=== PATIENT | male | born 1980 | race Caucasian/White ===

== ENCOUNTER 2016-06-27 23:51 | Emergency (ER) | payer OTHER, MEDICAID ==
[~2016-06-27] VITALS: Ht 175.3 cm; Wt 75.0 kg
[~2016-06-27 23:51] MED LIST: DIVA500T PO; NEUR300C PO; QUET1TAB9 PO; VENL75XR PO
[2016-06-28 00:05] VITALS: BP 120/72; PULSE 91; RESP 18; TEMP 97.8; O2SAT 99
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
[2016-06-28 00:39] LABS: AUTOMATED NEUTROPHIL # 9.8 TH/MM3 (1.8-7.7); BASOPHIL # 0.1 TH/MM3 (0-0.2); BASOPHIL % 0.8 % (0.0-2.0); EOSINOPHIL # 0.1 TH/MM3 (0-0.4); EOSINOPHIL % 0.5 % (0.0-4.0); HEMATOCRIT 44.4 % (39.0-51.0); HEMO FLAGS DIFF FINAL; LYMPH % 10.4 % (9.0-44.0); LYMPHOCYTE # 1.3 TH/MM3 (1.0-4.8); MEAN CELL VOLUME 92.6 FL (80.0-100.0); MEAN CORPUSCULAR HEMOGLOBIN 32.9 PG (27.0-34.0); MEAN CORPUSCULAR HGB CONC 35.6 % (32.0-36.0); MONO % 6.5 % (0.0-8.0); NEUT % 81.8 % (16.0-70.0); PLATELET COUNT 229 TH/MM3 (150-450); RED CELL DISTRIBUTION WIDTH 13.3 % (11.6-17.2)
[2016-06-28 00:46] LABS: AMPHETAMINE, URINE NEG (NEG); BARBITURATES, URINE NEG (NEG); COCAINE, URINE NEG (NEG)
[2016-06-28 00:55] LABS: ALT (GPT) 511 U/L (12-78); ANION GAP 8 MEQ/L (5-15); AST (GOT) 215 U/L (15-37); BICARBONATE 26.7 MEQ/L (21.0-32.0); BLOOD UREA NITROGEN 13 MG/DL (7-18); CHLORIDE 103 MEQ/L (98-107); GLOMERULAR FILTRATION RATE 106 ML/MIN (>89); POTASSIUM 3.4 MEQ/L (3.5-5.1); SODIUM (NA) 138 MEQ/L (136-145)
[2016-06-28 00:57] LABS: ALKALINE PHOSPHATASE 84 U/L (45-117); TOTAL BILIRUBIN ADULT 0.6 MG/DL (0.2-1.0)
[2016-06-28] MEDS ORDERED: POTASSIUM CHLORIDE 20 MEQ CONTROLLED RELEASE TAB PO ONE (01:30)
[2016-06-28 06:06] VITALS: BP 99/51; PULSE 85; RESP 18; O2SAT 96
[2016-06-28 09:01] VITALS: BP 92/52; PULSE 86; RESP 18; O2SAT 100
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
[2016-06-28] MEDS ORDERED: VENL75TA PO (11:08)
[2016-06-28] MEDS ORDERED: SERO100T PO (11:08)
[2016-06-28] MEDS ORDERED: VENLAFAXINE HCL 75 MG TAB PO SCH (12:00)
[2016-06-28 12:10] VITALS: BP 108/66; PULSE 75; RESP 18; TEMP 91.3; O2SAT 99
[2016-06-28] MEDS ORDERED: GABAPENTIN 300 MG CAP PO SCH (13:00)
== END 2016-06-28 12:33 | disposition home or self-care (01) ==
LOC: NEPA 23:51 → NEPJ 06-28 12:33
DX: F33.0 Major depressive disorder, recurrent, mild (principal); R45.851 Suicidal ideations; F41.8 Other specified anxiety disorders; F17.210 Nicotine dependence, cigarettes, uncomplicated
CPT/HCPCS: 80053; 80307; 80320; 85025; 99285

== ENCOUNTER 2016-07-02 18:17 | Inpatient (IN) | payer MEDICAID, OTHER ==
[~2016-07-02] VITALS: Ht 152.4 cm; Wt 77.1 kg
[~2016-07-02 18:17] MED LIST changes: -DIVA500T PO; -QUET1TAB9 PO; +SERO100T PO; +VENL75TA PO; -VENL75XR PO
[2016-07-02 21:24] VITALS: BP 112/64; PULSE 80; RESP 18; TEMP 98
[2016-07-02] MEDS: LORazepam 1 MG TAB PO PRN (22:12)
[2016-07-02] MEDS ORDERED: ALUMINUM/MAGNESIUM/SIMETH 30 ML CUP PO PRN (22:15)
[2016-07-02] MEDS ORDERED: LORazepam 2 MG/ML VIAL IM PRN (22:15)
[2016-07-02] MEDS ORDERED: ACETAMINOPHEN 325 MG TAB PO PRN (22:15)
[2016-07-02] MEDS ORDERED: MAGNESIUM HYDROXIDE SUSP 30 ML CUP PO PRN (22:15)
[2016-07-03 05:58] VITALS: BP 103/60; PULSE 77; RESP 18; TEMP 98.2; O2SAT 96
[2016-07-03 07:24] LABS: ANION GAP 9 MEQ/L (5-15); BLOOD UREA NITROGEN 11 MG/DL (7-18); CHLORIDE 104 MEQ/L (98-107); GLOMERULAR FILTRATION RATE 103 ML/MIN (>89); HDL CHOLESTEROL 43.4 MG/DL (40.0-60.0); LDL CHOLESTEROL 125 MG/DL (0-99); POTASSIUM 4.1 MEQ/L (3.5-5.1); SODIUM (NA) 139 MEQ/L (136-145)
[2016-07-03] MEDS: REMOVE OLD NICOTINE PATCH T-DERMAL SCH (09:00)
[2016-07-03] MEDS: LORazepam 1 MG TAB PO PRN ×2 (09:15→16:34)
[2016-07-03] MEDS: NICOTINE 21 MG/24 HR PATCH T-DERMAL SCH (09:15)
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
[2016-07-03] MEDS: VENLAFAXINE HCL XR 75 MG CAP PO SCH ×2 (12:00→21:31)
[2016-07-03] MEDS: GABAPENTIN 400 MG CAP PO SCH ×2 (12:50→16:34)
--- NOTE | 2016-07-03 13:12 | PD.CONS ---
HPI Service [facility] Consult Requested By Psychiatry Reason for Consult Hepatitis C, management of medical problems Primary Care Physician Edgar Weaver MD Diagnoses: History of Present Illness This is a 35-year-old male admitted to psych unit for anxiety, depression and bipolar disorder. We were consulted for management of chronic conditions. Per patient, he has history of hepatitis C from IV drug use when he was 22 years old. He used intravenous heroin. Never had any treatment for hepatitis C or hasn't seen a doctor. No note of symptoms of hepatic failure-like jaundice, lower extremity edema, right upper quadrant abdominal pain, ascites, abdominal tenderness or distention. Patient denies any other symptoms like fever, chills , nausea, vomiting, malaise, chest pain or shortness of breath. No significant weight loss. Review of Systems ROS Limitations: Other (All other pertinent systems were reviewed and are negative.) Past Family Social History Allergies: Coded Allergies: Opiate Agonists (Narcotics) (Verified Allergy, Mild, 06/28/16) PT IS IN RECOVERY Past Medical History Hepatitis C Past Surgical History No major surgery Reported Medications None Family History Father has hypertension and cardiac problems. Social History Patient has been smoking 1 pack a day for about 17 years, remote intravenous drug use when he was 22 years old, claims sobriety from alcohol for 4 years now Physical Exam Vital Signs Vital Signs Date Time Temp Pulse Resp B/P Pulse Ox O2 Delivery O2 Flow Rate FiO2 07/03/16 05:58 98.2 77 18 103/60 96 07/02/16 21:24 98.0 80 18 112/64 Physical Exam Not in distress, well-nourished, looks stated age PERRL, pink conjunctiva without injection, anicteric Nose without bleeding, airway patent, oropharynx clear Supple neck, no masses or thyromegaly, trachea midline Normal rate and regular rhythm, no murmurs gallops or rubs appreciated. Clear to auscultation and symmetric bilaterally, normal respiratory effort. Normal bowel sounds, soft, non-tender, nondistended, no guarding. Extremities without clubbing, cyanosis, or edema. No rash of generalized distribution. Skin is warm and dry. AAO x3, no cranial nerve deficits, moves all 4 extremities, no focal neurologic deficits Normal mood, appropriate affect Laboratory Laboratory Tests Test 07/03/16 06:08 Sodium Level 139 Potassium Level 4.1 Chloride Level 104 Carbon Dioxide Level 26.0 Anion Gap 9 Blood Urea Nitrogen 11 Creatinine 0.85 Estimat Glomerular Filtration 103 Rate Random Glucose 107 Calcium Level 8.1 Triglycerides Level 121 Cholesterol Level 193 LDL Cholesterol 125 HDL Cholesterol 43.4 Cholesterol/HDL Ratio 4.44 Result Diagram: 07/03/16 0608 Assessment and Plan Assessment and Plan This is a 35-year-old male with history of chronic hepatitis C Chronic hepatitis C- this is a chronic condition, usual treatment is as outpatient but will need improvement in patients psychiatric conditions. Check LFTs, if normal, no further treatment or diagnostics needed. Patient was advised to follow-up with his primary care physician or he needs a referral to a commercial manager because he is at high risk for hepatocellular cancer and cirrhosis. He would need an annual ultrasound of the liver and further testing for genotyping before getting treatment. Treatment for hepatitis C is usually as outpatient. Depression, anxiety, bipolar disorder-further management per primary team. Thank your very much for this consult, we will check LFTs, if these are normal, we will sign off. Konrad Valdez MD Jul 03, 2016 13:12
[2016-07-03 13:48] LABS: INDIRECT BILIRUBIN 0.4 MG/DL (0.0-0.8); TOTAL BILIRUBIN ADULT 0.5 MG/DL (0.2-1.0)
[2016-07-03] MEDS: clonazePAM 0.5 MG TAB PO PRN (15:00)
[2016-07-03 16:01] LABS: HEMOGLOBIN A1a 1.2 %; HEMOGLOBIN A1b 0.8 %; HEMOGLOBIN Ao 85.4 %; HEMOGLOBIN F 0.9 %; HEMOGLOBIN LA1C 2.2 %; HEMOGLOBIN P3 3.8 %
[2016-07-03] MEDS ORDERED: QUEtiapine FUMARATE 200 MG TAB PO SCH (21:00)
[2016-07-04 06:15] VITALS: BP 99/58; PULSE 68; RESP 16; TEMP 98.3
[2016-07-04] MEDS: REMOVE OLD NICOTINE PATCH T-DERMAL SCH (09:00)
[2016-07-04] MEDS: VENLAFAXINE HCL XR 75 MG CAP PO SCH ×2 (09:40→21:06)
[2016-07-04] MEDS: GABAPENTIN 400 MG CAP PO SCH ×3 (09:40→17:09)
[2016-07-04] MEDS: NICOTINE 21 MG/24 HR PATCH T-DERMAL SCH (09:40)
[2016-07-04] MEDS: LORazepam 1 MG TAB PO PRN ×2 (09:40→15:32)
[2016-07-04] MEDS: clonazePAM 0.5 MG TAB PO PRN ×3 (10:36→21:06)
--- NOTE | 2016-07-04 11:03 | HHI.PYPN ---
Subjective Remarks Patient was seen and discussed with the staff technologist. Patient reported that he stays somewhat agitated and on edge. He had difficulty time sleeping. He still feels somewhat sad and depressed and occasionally thoughts of wanting to harm himself crosses his mind but he feels safe in the hospital. Is compliant in taking medication. No behavior or management problem reported. No side effects were complained. Continue with the same treatment adjust the medication Review of Systems Except as stated in HPI: all other systems reviewed are Neg Psychiatric: COMPLAINS OF: Anxiety, Mood changes, Depression, Agitation, Suicidal Ideation (passive suicidal ideas crosses his mind but he feels safe in the hospital) Objective Alert: Yes [place]: Person, Place, Situation Mood: Agitated, Anxious, Depressed, Other (patient feels on edge) Affect: Restricted Memory Intact: Recent (mildly impaired) Hallucinations: Other (denies any active auditory or visual hallucinations) Delusions: No Delusion Type: Other (no obvious delusional material voiced) Suicidal: Ideation (passive thoughts of suicide crosses his mind but feels safe in the hospital) Homicidal: Ideation (denies) Insight/Judgement Fair to limited Remarks Attention and concentration improving. Gait normal. Language normal. Fund of knowledge average Vitals/IOs Vital Signs Date Time Temp Pulse Resp B/P Pulse Ox O2 Delivery O2 Flow Rate FiO2 07/04/16 06:15 98.3 68 16 99/58 07/03/16 05:58 96 Assessment & Plan Problem List: (1) Bipolar affective disorder, mixed ICD Code: F31.60 (2) Alcohol abuse with physiological dependence ICD Code: F10.20 Assessment & Plan Estimated LOS: days Justification for Cont. Inpt. Monitoring of the medication and risks for safety Request HC Surrog/Guard Advoc?: No Anthony Montanez MD Jul 04, 2016 11:03
[2016-07-04 18:00] VITALS: BP 119/63; PULSE 98; RESP 18; TEMP 97.2; O2SAT 98
[2016-07-04] MEDS ORDERED: QUEtiapine FUMARATE 100 MG TAB PO SCH (21:00)
[2016-07-05 05:57] VITALS: BP 102/65; PULSE 68; RESP 18; TEMP 98.1
[2016-07-05] MEDS: REMOVE OLD NICOTINE PATCH T-DERMAL SCH (09:00)
[2016-07-05] MEDS: NICOTINE 21 MG/24 HR PATCH T-DERMAL SCH (09:19)
[2016-07-05] MEDS: VENLAFAXINE HCL XR 75 MG CAP PO SCH ×2 (09:19→21:04)
[2016-07-05] MEDS: GABAPENTIN 400 MG CAP PO SCH ×3 (09:19→17:17)
[2016-07-05] MEDS: clonazePAM 0.5 MG TAB PO PRN ×2 (09:20→17:17)
--- NOTE | 2016-07-05 11:55 | HHI.PYPN ---
Subjective Remarks Patient was seen and discussed with the manager staffing. Patient was isolating himself and staying in his room thinking and worried about feeling anxious and depressed worried about future. Complain about not being able to sleep or rest at night. Denies any active suicidal ideation intentions or plan. No behavior or management problem reported. Advised to continue with the same treatment he is compliant in taking medication. No side effects were complained. Review of Systems Except as stated in HPI: all other systems reviewed are Neg Psychiatric: COMPLAINS OF: Anxiety, Mood changes, Depression Objective Alert: Yes [place]: Person, Place, Situation Mood: Agitated, Anxious, Depressed, Other (patient feels on edge and worried about the future) Affect: Restricted Memory Intact: Recent (mildly impaired) Hallucinations: Other (denies any active auditory or visual hallucinations) Delusions: No Delusion Type: Other (no obvious delusional material voiced) Suicidal: Ideation (passive thoughts of suicide crosses his mind but feels safe in the hospital) Homicidal: Ideation (denies) Insight/Judgement Fair Vitals/IOs Vital Signs Date Time Temp Pulse Resp B/P Pulse Ox O2 Delivery O2 Flow Rate FiO2 07/05/16 05:57 98.1 68 18 102/65 07/04/16 18:00 98 Intake and Output 07/04/16 07/04/16 07/05/16 08:00 16:00 00:00 Intake Total 360 ml Balance 360 ml Assessment & Plan Problem List: (1) Bipolar affective disorder, mixed ICD Code: F31.60 (2) Alcohol abuse with physiological dependence ICD Code: F10.20 Assessment & Plan Estimated LOS: days Justification for Cont. Inpt. Risk of decompensation and monitoring of the medication Request HC Surrog/Guard Advoc?: No Anthony Montanez MD Jul 05, 2016 11:55
[2016-07-05] MEDS: LORazepam 1 MG TAB PO PRN ×2 (12:43→20:04)
[2016-07-05 18:48] VITALS: BP 127/61; PULSE 94; RESP 18; O2SAT 98
[2016-07-05] MEDS: QUEtiapine FUMARATE 200 MG TAB PO SCH (21:04)
[2016-07-06 05:42] VITALS: BP 98/58; PULSE 64; RESP 18; TEMP 97.9
[2016-07-06] MEDS: clonazePAM 0.5 MG TAB PO PRN ×3 (08:19→23:19)
[2016-07-06] MEDS: VENLAFAXINE HCL XR 75 MG CAP PO SCH ×2 (08:19→20:43)
[2016-07-06] MEDS: REMOVE OLD NICOTINE PATCH T-DERMAL SCH (08:19)
[2016-07-06] MEDS: GABAPENTIN 400 MG CAP PO SCH ×3 (08:19→17:25)
[2016-07-06] MEDS: NICOTINE 21 MG/24 HR PATCH T-DERMAL SCH (08:19)
[2016-07-06] MEDS: LORazepam 1 MG TAB PO PRN ×2 (10:51→19:37)
--- NOTE | 2016-07-06 17:35 | HHI.PYPN ---
Subjective Remarks Pt seen and discussed with staff. He reports he is tolerating medications without side effects. He reports improvement in mood but anxiety persists. Pt has been pacing hallways. He reports SI persists but he denies HI. Review of Systems Psychiatric: COMPLAINS OF: Anxiety, Suicidal Ideation Objective Alert: Yes [place]: Person, Place, Date, Situation Mood: Anxious, Depressed Affect: Restricted Memory Intact: Immediate, Recent, Remote Hallucinations: Other (denies any active auditory or visual hallucinations) Delusions: No Delusion Type: Other (no obvious delusional material voiced) Suicidal: Ideation (intermittent thoughts of suicide crosses his mind but feels safe in the hospital) Homicidal: Ideation (denies) Insight/Judgement poor Vitals/IOs Vital Signs Date Time Temp Pulse Resp B/P Pulse Ox O2 Delivery O2 Flow Rate FiO2 07/06/16 05:42 97.9 64 18 98/58 07/05/16 18:48 98 Assessment & Plan Problem List: (1) Bipolar affective disorder, mixed ICD Code: F31.60 (2) Alcohol abuse with physiological dependence ICD Code: F10.20 Assessment & Plan Continue current tx plan. Pt improving. Estimated LOS: days Justification for Cont. Inpt. impairments in safety Request HC Surrog/Guard Advoc?: No Aleisha Ayon MD Jul 06, 2016 17:35
[2016-07-06] MEDS: QUEtiapine FUMARATE 200 MG TAB PO SCH (20:43)
[2016-07-06 22:00] VITALS: BP 155/76; PULSE 82; RESP 18; TEMP 97.9; O2SAT 97
[2016-07-07 05:15] VITALS: BP 99/63; PULSE 66; RESP 18; TEMP 98.3
[2016-07-07] MEDS: clonazePAM 0.5 MG TAB PO PRN ×2 (08:33→17:07)
[2016-07-07] MEDS: GABAPENTIN 400 MG CAP PO SCH ×3 (08:33→17:07)
[2016-07-07] MEDS: VENLAFAXINE HCL XR 75 MG CAP PO SCH ×2 (08:33→21:15)
[2016-07-07] MEDS: REMOVE OLD NICOTINE PATCH T-DERMAL SCH (08:33)
[2016-07-07] MEDS: NICOTINE 21 MG/24 HR PATCH T-DERMAL SCH (08:33)
[2016-07-07] MEDS: LORazepam 1 MG TAB PO PRN ×2 (11:29→19:35)
--- NOTE | 2016-07-07 18:38 | HHI.PYPN ---
Subjective Remarks Pt seen and discussed with staff. Pt reports decreased SI and denies HI. He has been out on milieu interacting with peers and participating in activities. No medication side effects. Objective Alert: Yes [place]: Person, Place, Date, Situation Mood: Depressed Affect: Restricted Memory Intact: Immediate, Recent, Remote Hallucinations: Other (denies any active auditory or visual hallucinations) Delusions: No Delusion Type: Other (no obvious delusional material voiced) Suicidal: Ideation (intermittent thoughts of suicide crosses his mind but feels safe in the hospital) Homicidal: Ideation (denies) Insight/Judgement limited Vitals/IOs Vital Signs Date Time Temp Pulse Resp B/P Pulse Ox O2 Delivery O2 Flow Rate FiO2 07/07/16 05:15 98.3 66 18 99/63 07/06/16 22:00 97 Assessment & Plan Problem List: (1) Bipolar affective disorder, mixed ICD Code: F31.60 (2) Alcohol abuse with physiological dependence ICD Code: F10.20 Assessment & Plan Continue current tx plan. Estimated LOS: days Justification for Cont. Inpt. impairments in safety Request HC Surrog/Guard Advoc?: Aleisha Nolasco MD Jul 07, 2016 18:38
[2016-07-07 21:02] VITALS: BP 124/62; PULSE 72; TEMP 98; O2SAT 98
[2016-07-07] MEDS: QUEtiapine FUMARATE 200 MG TAB PO SCH (21:15)
[2016-07-08 05:30] VITALS: BP 98/58; PULSE 71; RESP 18; TEMP 97.9
[2016-07-08] MEDS: GABAPENTIN 400 MG CAP PO SCH ×3 (08:40→17:05)
[2016-07-08] MEDS: REMOVE OLD NICOTINE PATCH T-DERMAL SCH (08:40)
[2016-07-08] MEDS: VENLAFAXINE HCL XR 75 MG CAP PO SCH ×2 (08:40→20:09)
[2016-07-08] MEDS: NICOTINE 21 MG/24 HR PATCH T-DERMAL SCH (08:40)
[2016-07-08] MEDS: clonazePAM 0.5 MG TAB PO PRN ×2 (09:19→17:05)
--- NOTE | 2016-07-08 10:44 | HHI.PYPN ---
Subjective Remarks Patient was seen and discussed with the medical staff services manager. Patient claimed that he continues to feel agitated anxious pacing scared and angry. Patient wanted to have the Klonopin he was advised that he is already taking the Seroquel I we will adjust the Seroquel to help his nerves. He also claimed that he gets easily angry we will try him on Depakote again to control temper. He was encouraged to participate in all the therapeutic activity on the floor. Continue with the same treatment social work case manager to assist for aftercare and discharge planning Review of Systems Except as stated in HPI: all other systems reviewed are Neg Psychiatric: COMPLAINS OF: Anxiety, Mood changes, Depression, Agitation Objective Alert: Yes [place]: Person, Place, Date, Situation Mood: Agitated, Angry, Anxious, Depressed Affect: Restricted Memory Intact: Immediate, Recent, Remote Hallucinations: Other (denies any active auditory or visual hallucinations) Delusions: No Delusion Type: Other (no obvious delusional material voiced) Suicidal: Ideation (intermittent thoughts of suicide crosses his mind but feels safe in the hospital) Homicidal: Ideation (denies) Insight/Judgement Fair to limited Vitals/IOs Vital Signs Date Time Temp Pulse Resp B/P Pulse Ox O2 Delivery O2 Flow Rate FiO2 07/08/16 05:30 97.9 71 18 98/58 07/07/16 21:02 98 Assessment & Plan Problem List: (1) Bipolar affective disorder, mixed ICD Code: F31.60 (2) Alcohol abuse with physiological dependence ICD Code: F10.20 Assessment & Plan Estimated LOS: days Justification for Cont. Inpt. Monitoring of the medication and risk of safety Request HC Surrog/Guard Advoc?: No Anthony Montanez MD Jul 08, 2016 10:44
[2016-07-08] MEDS: DIVALPROEX SODIUM DELAYED RELEASE 250 MG TAB PO SCH ×2 (10:45→20:08)
[2016-07-08] MEDS: LORazepam 1 MG TAB PO PRN ×2 (11:41→19:05)
[2016-07-08] MEDS: QUEtiapine FUMARATE 25 MG TAB PO SCH ×2 (12:27→17:05)
[2016-07-08 19:00] VITALS: BP 153/75; PULSE 88; RESP 18; TEMP 97.9; O2SAT 97
[2016-07-08] MEDS: QUEtiapine FUMARATE 200 MG TAB PO SCH (21:17)
[2016-07-09] MEDS: clonazePAM 0.5 MG TAB PO PRN ×3 (05:15→21:14)
[2016-07-09 05:52] VITALS: BP 100/60; PULSE 70; RESP 18; TEMP 97.8
[2016-07-09 06:24] VITALS: BP 100/60; PULSE 70; RESP 18; TEMP 97.8
[2016-07-09 08:30] VITALS: BP 103/59; PULSE 86; RESP 18; O2SAT 96
[2016-07-09] MEDS: DIVALPROEX SODIUM DELAYED RELEASE 250 MG TAB PO SCH ×2 (08:55→21:16)
[2016-07-09] MEDS: QUEtiapine FUMARATE 25 MG TAB PO SCH ×3 (08:55→17:37)
[2016-07-09] MEDS: NICOTINE 21 MG/24 HR PATCH T-DERMAL SCH (08:55)
[2016-07-09] MEDS: LORazepam 1 MG TAB PO PRN ×2 (08:55→16:37)
[2016-07-09] MEDS: REMOVE OLD NICOTINE PATCH T-DERMAL SCH (08:55)
[2016-07-09] MEDS: GABAPENTIN 400 MG CAP PO SCH ×3 (08:55→17:37)
[2016-07-09] MEDS: VENLAFAXINE HCL XR 75 MG CAP PO SCH ×2 (08:55→21:14)
--- NOTE | 2016-07-09 10:23 | HHI.PYPN ---
Subjective Remarks Patient was seen and discussed with the staff electrical engineer. No behavior or management problem reported. Patient claimed that he has been feeling somewhat depressed and worried about going out but he is willing to work as an outpatient and abstain from any substance use and/or abuse. Patient denied any suicidal ideation intentions or plan. Denies any active auditory or visual hallucinations. No behavior or management problem reported. No side effects were complained. We'll assess foster care social worker to assist in aftercare and discharge planning for tomorrow Review of Systems Except as stated in HPI: all other systems reviewed are Neg Psychiatric: COMPLAINS OF: Mood changes, Depression Objective Alert: Yes [place]: Person, Place, Date, Situation Mood: Agitated, Angry, Anxious, Depressed Affect: Restricted Memory Intact: Immediate, Recent, Remote Hallucinations: Other (denies any active auditory or visual hallucinations) Delusions: No Delusion Type: Other (no obvious delusional material voiced) Suicidal: Ideation (denied any suicidal ideation intentions or plan) Homicidal: Ideation (denies) Insight/Judgement Fair Vitals/IOs Vital Signs Date Time Temp Pulse Resp B/P Pulse Ox O2 Delivery O2 Flow Rate FiO2 07/09/16 06:24 97.8 70 18 100/60 07/08/16 19:00 97 Assessment & Plan Problem List: (1) Bipolar affective disorder, mixed ICD Code: F31.60 (2) Alcohol abuse with physiological dependence ICD Code: F10.20 Assessment & Plan Estimated LOS: days Justification for Cont. Inpt. Risk of decompensation and monitoring of the medication Request HC Surrog/Guard Advoc?: No Anthony Montanez MD Jul 09, 2016 10:23
[2016-07-09 18:35] VITALS: BP 126/71; PULSE 83; RESP 18; TEMP 97.6; O2SAT 97
[2016-07-09] MEDS: QUEtiapine FUMARATE 200 MG TAB PO SCH (21:14)
[2016-07-10] MEDS: clonazePAM 0.5 MG TAB PO PRN (05:37)
[2016-07-10 05:55] VITALS: BP 106/57; PULSE 70; RESP 16; TEMP 97.2; O2SAT 97
[2016-07-10] MEDS: QUEtiapine FUMARATE 25 MG TAB PO SCH ×2 (08:16→12:28)
[2016-07-10] MEDS: GABAPENTIN 400 MG CAP PO SCH ×2 (08:16→12:28)
[2016-07-10] MEDS: DIVALPROEX SODIUM DELAYED RELEASE 250 MG TAB PO SCH (08:16)
[2016-07-10] MEDS: LORazepam 1 MG TAB PO PRN (08:16)
[2016-07-10] MEDS: VENLAFAXINE HCL XR 75 MG CAP PO SCH (08:16)
[2016-07-10] MEDS: NICOTINE 21 MG/24 HR PATCH T-DERMAL SCH (08:17)
[2016-07-10] MEDS: REMOVE OLD NICOTINE PATCH T-DERMAL SCH (08:17)
--- NOTE | 2016-07-10 10:45 | HHI.DS ---
Psychiatry Discharge Summary Inpatient Psychiatric care?: Yes Advance Directive: No Reason Not Provided: Patient Not Interested Mental Health AdvanceDirective: No Health Care Proxy: No Admission Admission Date Jul 02, 2016 at 20:30 Admission Diagnosis: (1) Bipolar affective disorder, depressed ICD Code: F31.30 GAF Score: 45 Brief History This is a 35-year-old white to male who was admitted as a transfer from [facility] where he was taken as he was threatening to hurt himself and his girlfriend. He claimed that he has been getting into an argument with his girlfriend. He denies any alcohol or drug use and/or abuse. He has been complaining of not being able to sleep and mind racing and getting easily irritated table and angry. Patient also has some questionable compliance in taking the medication. He has been having some difficulty controlling his aggressive impulses. Patient is willing to sign voluntary after discussion and willing to cooperate with the treatment and probably wants to go to a longer- term treatment he also has a history of alcohol abuse and mood swings. At the. Present time patient denies any suicidal ideation intentions or plan denied any auditory or visual hallucinations. Tobacco Use In Past 30 Days: 5 or More Cigarettes/Day Alcohol Use: Never Hospital Course Patient was started on supportive treatment. His medication was adjusted. He participated in some of the therapeutic activity on the floor. He started to feel better and was willing to follow-up as an outpatient and abstain from any substance use and/or abuse. Patient denied any suicidal ideation intentions or plan denied any auditory or visual hallucinations at that point arrangements were made for him to be discharged Results Blood Pressure 106 / 57 Vital Signs Date Time Temp Pulse Resp B/P Pulse Ox O2 Delivery O2 Flow Rate FiO2 07/10/16 05:55 97.2 70 16 106/57 97 Please see the EMR Summary of Major Lab Results Nothing significant Summary of Procedures None Imaging None Pending results at discharge: No Medications # of Antipsychotic meds at D/C: 1 Appropriate >1 Antipsych meds?: 2 Approp Antipsych med options 1 - Minimum of three failed multiple trials of monotherapy. Discharge Discharge Date: Jul 10, 2016 Discharge Diagnosis: (1) Bipolar affective disorder, depressed ICD Code: F31.30 Mental Status Exam at Disch Patient was alert oriented 3 cooperative casually dressed. His speech was clear spontaneous without any evidence of loose associations his mood was described as feeling fine and was willing to abstain from any substance use and/ or abuse and follow-up as an outpatient. No behavior or management problem reported except that he was inappropriate with another female patient. Patient denied any suicidal ideation intentions or plan. Willing to take the medication Pt Condition on Discharge: Stable Discharge Disposition: Discharge Home Discharge Instructions Diet Instructions: As Tolerated, No Restrictions Activities you can perform: Regular-No Restrictions Scheduled Appointment: Mehul Laws Discharge Time <= 30 minutes Discharge/Advance Care Plan Health Problems: (1) Bipolar affective disorder, mixed (2) Alcohol abuse with physiological dependence Goals to promote your health * To prevent worsening of your condition and complications * To maintain your health at the optimal level Directions to meet your goals Take your medications as prescribed Follow your dietary instruction Follow activity as directed Keep your appointments as scheduled Take your immunizations and boosters as scheduled If your symptoms worsen call your PCP, if no PCP go to Urgent Care Center or Emergency Room For 06/01 questions related to your inpatient stay or results of tests pending at discharge, please contact Dr. Anthony Montanez at Smoking is Dangerous to Your Health. Avoid second hand smoking Problem Qualifiers (1) Bipolar affective disorder, depressed: Qualified Code: F31.32 - Bipolar affective disorder, currently depressed, moderate Anthony Montanez MD Jul 10, 2016 10:45
[2016-07-10] MEDS ORDERED: VENL75XR PO (10:47)
[2016-07-10] MEDS ORDERED: DIVA250T PO (10:47)
[2016-07-10] MEDS ORDERED: NEUR400C PO (10:47)
[2016-07-10] MEDS ORDERED: QUET1TAB9 PO (10:47)
[2016-07-10] MEDS ORDERED: QUET1TAB7 PO (10:47)
== END 2016-07-10 13:00 | disposition home or self-care (01) | DRG 885 ==
LOC: UNDOADMIN 18:50 → H260 18:50
PROVIDERS: ADMIT Psychiatry & Neurology Psychiatry; ATTEND Psychiatry & Neurology Psychiatry
DX: F31.89 Other bipolar disorder (principal); F10.10 Alcohol abuse, uncomplicated; B18.2 Chronic viral hepatitis C; F41.8 Other specified anxiety disorders; F17.210 Nicotine dependence, cigarettes, uncomplicated; Z91.19 Patient's noncompliance with other medical treatment and regimen
CPT/HCPCS: 80048; 80061; 80076; 83036

== ENCOUNTER 2016-07-31 03:02 | Emergency (ER) | payer MEDICAID, OTHER ==
[~2016-07-31 03:02] MED LIST changes: +DIVA250T PO; +NEUR400C PO; +QUET1TAB7 PO; +QUET1TAB9 PO; +VENL75XR PO
[2016-07-31 03:04] VITALS: BP 130/72; PULSE 85; RESP 16; TEMP 98.1; O2SAT 98
== END 2016-07-31 09:44 | disposition left against medical advice (07) ==
LOC: NETRI 03:02
DX: R10.9 Unspecified abdominal pain (principal)
CPT/HCPCS: 99281

== ENCOUNTER 2016-08-07 01:55 | Inpatient (IN) | payer MEDICAID, OTHER ==
[~2016-08-07] VITALS: Ht 175.3 cm; Wt 75.6 kg
[2016-08-07 02:35] VITALS: BP 107/59; PULSE 74; RESP 18; TEMP 97.8; O2SAT 97
[2016-08-07] MEDS ORDERED: ALUMINUM/MAGNESIUM/SIMETH 30 ML CUP PO PRN (04:00)
[2016-08-07] MEDS ORDERED: MAGNESIUM HYDROXIDE SUSP 30 ML CUP PO PRN (04:00)
[2016-08-07] MEDS ORDERED: ACETAMINOPHEN 325 MG TAB PO PRN (04:00)
[2016-08-07 05:02] VITALS: BP 90/55; PULSE 98; RESP 18; TEMP 98; O2SAT 98
[2016-08-07 08:24] LABS: ANION GAP 5 MEQ/L (5-15); BICARBONATE 30.9 MEQ/L (21.0-32.0); BLOOD UREA NITROGEN 16 MG/DL (7-18); CHLORIDE 105 MEQ/L (98-107); GLOMERULAR FILTRATION RATE 89 ML/MIN (>89); HDL CHOLESTEROL 40.9 MG/DL (40.0-60.0); LDL CHOLESTEROL 109 MG/DL (0-99); POTASSIUM 4.3 MEQ/L (3.5-5.1); SODIUM (NA) 141 MEQ/L (136-145)
[2016-08-07] MEDS ORDERED: NICOTINE 21 MG/24 HR PATCH T-DERMAL SCH (09:00)
[2016-08-07 09:28] LABS: HEMOGLOBIN A1a 1.1 %; HEMOGLOBIN A1b 0.8 %; HEMOGLOBIN Ao 86.2 %; HEMOGLOBIN F 0.8 %; HEMOGLOBIN P3 3.5 %
[2016-08-07] MEDS ORDERED: LORazepam 2 MG TAB PO STA (10:51)
--- NOTE | 2016-08-07 12:44 | HHI.HP ---
Provisional Diagnosis Admission Date Aug 07, 2016 at 02:30 Barto I. Substance-induced mood disorder, alcohol and opiate use disorder, history of bipolar disorder and anxiety Barto II. Unspecified personality disorder, rule out antisocial personality disorder Barto III. Denies Barto IV. Homelessness, previous psychiatric hospitalizations with not therapeutic benefit Barto V. 55 Certification of Person's Competence To Provide Express and Informed Consent I have personally examined Naresh Su , a person being served at [facility] on, Aug 07, 2016 12:25. Express and informed consent means consent voluntarily given in writing, by a competent person, after sufficient explanation and disclosure of the subject matter involved to enable the person to make a knowing and willful decision without any element of force, fraud, deceit, duress, or other form of constraint or coercion. This person is 18 years of age or older, is not now known to be incompetent to consent to treatment with a guardian advocate, and does not have a health care surrogate or proxy currently making medical treatment decisions. I have found this person to be one of the following: [X] Competent to provide express and informed consent, as defined above, for voluntary admission to this facility and is competent to provide express and informed consent for treatment. He/she has the consistent capacity to make well reasoned, willful, and knowing decisions concerning his or her medical or mental health treatment. The person fully and consistently understands the purpose of the admission for examination/placement and is fully capable of personally exercising all rights assured under [place] [] Incompetent to provide express and informed consent to voluntary admission, and this is incompetent to provide express and informed consent to treatment. The person must be transferred to involuntary status and a petition for a guardian advocate filed with the Circuit Court. [] Refusing to provide express and informed consent to voluntary admission but is competent to provide express and informed consent for treatment. The person must be discharged or transferred to involuntary status. Form shall be completed within 24 hours of a person's arrival at the receiving facility and filed in the clinical record of each person: 1. Admitted on a voluntary basis 2. Permitted to provide express and informed consent to his/her own treatment 3. Allowed to transfer from involuntary to voluntary status 4. Prior to permitting a person to consent to his or her own treatment after having been previously found incompetent to consent to treatment. History of Present Illness Capacity: Has Capacity HPI The patient is a 35-year-old man, domiciled with a friend, unemployed , single, psychiatric history of self-reported bipolar disorder, anxiety, opiates and alcohol use disorder, noncompliance with medication and psychiatric follow-up, multiple psychiatric hospitalizations, >10, 4 this year, last hospitalization was here at [facility] in the 2600 unit under the care of Dr. Montanez , multiple suicidal attempts, multiple ER visits with similar presentation, no significant medical history who was transferred from [facility] due to suicidal ideation, under Su act. Patient was seen today along with nurse in charge, he was calm and cooperative, he is states that he came to the hospital because he is tired to live in the street and been using drugs all the time. He says that he has been using heroine and alcohol basically everyday , he uses about 2-10 bags of heroine daily, also uses 8-12 beers per day. He says that he has been using heroine and alcohol for years now, he doesn't remember the last period of sobriety that he has. He says that after he was discharged from [facility] a month ago he never took the psychiatric medications and never went to appointments. Patient states that alcohol and heroine are better than psychotropics for his depression. At this moment he endorses depression "because I am actively withdrawing and you have not given me anything ". Patient states that since he is in the psychiatric unit he doesn't feel that his suicidal, he says that he needs to be given medication for detox. He denies suicidal or homicidal ideation at this moment, he denies visual and auditory hallucinations. Patient is fully oriented 3. Review of Systems Constitutional: DENIES: Diaphoretic episodes, Fatigue, Fever, Weight gain, Weight loss, Chills, Dizziness, Change in appetite, Night Sweats Endocrine: DENIES: Heat/cold intolerance, Polydipsia, Polyuria, Polyphagia Eyes: DENIES: Blurred vision, Diplopia, Eye inflammation, Eye pain, Vision loss , Photosensitivity, Double Vision Ears, nose, mouth, throat: DENIES: Tinnitus, Hearing loss, Vertigo, Nasal discharge, Oral lesions, Throat pain, Hoarseness, Ear Pain, Running Nose, Epistaxis, Sinus Pain, Toothache, Odynophagia Respiratory: DENIES: Apneas, Cough, Snoring, Wheezing, Hemoptysis, Sputum production, Shortness of breath Cardiovascular: DENIES: Chest pain, Palpitations, Syncope, Dyspnea on Exertion , PND, Lower Extremity Edema, Orthopnea, Claudication Gastrointestinal: DENIES: Abdominal pain, Black stools, Bloody stools, Constipation, Diarrhea, Nausea, Vomiting, Difficulty Swallowing, Anorexia Musculoskeletal: DENIES: Joint pain, Muscle aches, Stiffness, Joint Swelling, Back pain, Neck pain Integumentary: DENIES: Abnormal pigmentation, Nail changes, Pruritus, Rash Hematologic/lymphatic: DENIES: Bruising, Lymphadenopathy Immunologic/allergic: DENIES: Eczema, Urticaria Neurologic: COMPLAINS OF: Tremor Psychiatric: DENIES: Anxiety, Confusion, Mood changes, Depression, Hallucinations, Agitation, Suicidal Ideation, Homicidal Ideation, Delusions Past Psych History Violence risk - others (6 mos) Chronic risk Violence risk - self (6 mos) Chronic risk Substance Abuse History Drugs/Alcohol past 12 months Patient reports daily use of alcohol and heroine Past Family Social History Coded Allergies: Opiate Agonists (Narcotics) (Verified Allergy, Mild, 07/31/16) PT IS IN RECOVERY Active Scripts Venlafaxine ER 24 HR (Effexor XR 24 HR)75 Mg [id number] Mg PO BID 10 Days Ref 0 Prov:Anthony Montanez MD 07/10/16 Quetiapine 25 Mg Tab25 Mg PO TID 7 Days Ref 0 Prov:Anthony Montanez MD 07/10/16 Quetiapine 200 Mg Tue546 Mg PO HS 10 Days Ref 0 Prov:Anthony Montanez MD 07/10/16 Gabapentin (Neurontin)400 Mg [id number] Mg PO TID 7 Days Ref 1 Prov:Anthony Montanez MD 07/10/[address] 250 Mg [id number] Mg PO Q12HR 10 Days Ref 0 Prov:Anthony Montanez MD 07/10/16 Gabapentin (Neurontin)300 Mg Umh556 Mg PO TID 10 Days Ref 1 Prov:Anthony Montanez MD 05/03/16 Reported Medications Quetiapine (Seroquel)100 Mg [id number] Mg PO HS #30 TAB Ref 0 06/28/16 Venlafaxine (Effexor)75 Mg Tab75 Mg PO BID #30 TAB Ref 0 06/28/16 Family History He denies Social History Patient was born and raised in [place], he has been living in [place] for the last 4 years, he lives with a friend in [place], he is unemployed, single , his highest level of education is high school Physical Exam Vital Signs Vital Signs Date Time Temp Pulse Resp B/P Pulse Ox O2 Delivery O2 Flow Rate FiO2 08/07/16 05:02 98.0 98 18 90/55 98 Mental Status Examination Appearance man, age appearing, good hygiene, [facility], he is calm and cooperative Speech: Unremarkable Orientation: x3 Memory: Unremarkable Thought Process: Logical Thought Content: Unremarkable Hallucination Type: None Attention and Concentration: Good Suicidal Ideation: No Previous Suicide Attempts: No Homicidal Ideation: No Previous Homicide Attempts: No Insight: Poor Affect: Good Mood: Appropriate Motor Activity: Normal gait Assessment & Plan Problem List: (1) Substance induced mood disorder Assessment & Plan: e patient is a 35-year-old man, domiciled with a friend, unemployed, single, psychiatric history of self-reported bipolar disorder, anxiety, opiates and alcohol use disorder, noncompliance with medication and psychiatric follow-up, multiple psychiatric hospitalizations, >10 , 4 this year, last hospitalization was here at [facility] in the 2600 unit under the care of Dr. Montanez, multiple suicidal attempts, multiple ER visits with similar presentation, no significant medical history who was transferred from [facility] due to suicidal ideation, under Su act. On psychiatric evaluation today patient is endorsing withdrawal of heroine and alcohol, he has been demanding benzodiazepines and methadone for his withdrawal. He denies suicidal or homicidal ideation, he denies visual and auditory hallucinations. Endorses depression related with symptomatology of withdrawal. The patient does not meet criteria to continue his psychiatric admission at this moment. I don't think that a psychiatric hospitalization is beneficial for this patient at this time, he really will benefit of a detox program in a long-term rehabilitation program. His recent suicidal statement was most probably secondary to acute alcohol and heroine intoxication, poor judgment, character structure, and most probably as a way to negotiate a place to stay overnight, rather than to a primary psychiatric condition. aged or disabled care worker intervention to provide patient with referral to detox/ rehabilitation in a [facility] act. Patient is psychiatrically stable to be discharged back to the community No psychotropic medication will be prescribed No restriction in diet and weightbearing Patient will be discharged back to his friend's house Extensive support, motivation psycho education provided Patient was oriented about importance of calling 911 in case of suicidal ideation, depression, symptoms of psychosis Patient verbalized agreement and understanding with the plan Will order Ativan 2 mg by mouth stat for anxiety and tremors ICD Code: F19.94 Assessment & Plan Estimated LOS: Tommy Cruz MD Aug 07, 2016 12:44
[2016-08-07] MEDS ORDERED: REMOVE OLD NICOTINE PATCH T-DERMAL SCH (21:00)
== END 2016-08-07 11:25 | disposition home or self-care (01) | DRG 897 ==
LOC: H260 02:30
PROVIDERS: ADMIT Psychiatry & Neurology Psychiatry; ATTEND Psychiatry & Neurology Psychiatry
DX: F19.94 Other psychoactive substance use, unspecified with psychoactive substance-induced mood disorder (principal); F31.9 Bipolar disorder, unspecified; Z91.14 Patient's other noncompliance with medication regimen; F41.9 Anxiety disorder, unspecified; F60.9 Personality disorder, unspecified; Z59.0 Homelessness
CPT/HCPCS: 80048; 80061; 83036

== ENCOUNTER 2016-09-06 00:59 | Inpatient (IN) | payer MEDICAID, OTHER ==
[~2016-09-06] VITALS: Ht 152.4 cm; Wt 75.5 kg
[2016-09-06 02:10] VITALS: BP 99/58; PULSE 80; RESP 16; TEMP 98.2; O2SAT 96
[2016-09-06] MEDS ORDERED: diphenhydrAMINE HCL 50 MG CAP PO PRN (03:00)
[2016-09-06] MEDS ORDERED: MAGNESIUM HYDROXIDE SUSP 30 ML CUP PO PRN ×2 (03:00→11:45)
[2016-09-06] MEDS ORDERED: ALUMINUM/MAGNESIUM/SIMETH 30 ML CUP PO PRN ×2 (03:00→11:45)
[2016-09-06] MEDS ORDERED: diphenhydrAMINE HCL 50 MG/ML VIAL IM PRN (03:00)
[2016-09-06] MEDS ORDERED: diphenhydrAMINE HCL 50 MG/ML VIAL - HS PRN IM (03:00)
[2016-09-06] MEDS ORDERED: traZODone HCL 50 MG TAB PO PRN (03:00)
[2016-09-06] MEDS ORDERED: diphenhydrAMINE HCL 50 MG CAP - HS PRN PO (03:00)
[2016-09-06 06:04] VITALS: BP 93/53; PULSE 85; RESP 18; TEMP 98; O2SAT 98
[2016-09-06 09:40] LABS: ANION GAP 6 MEQ/L (5-15); BICARBONATE 29.7 MEQ/L (21.0-32.0); BLOOD UREA NITROGEN 14 MG/DL (7-18); CHLORIDE 105 MEQ/L (98-107); GLOMERULAR FILTRATION RATE 119 ML/MIN (>89); HDL CHOLESTEROL 48.4 MG/DL (40.0-60.0); LDL CHOLESTEROL 111 MG/DL (0-99); POTASSIUM 3.8 MEQ/L (3.5-5.1); SODIUM (NA) 141 MEQ/L (136-145)
[2016-09-06] MEDS ORDERED: ACETAMINOPHEN 325 MG TAB PO PRN (11:45)
--- NOTE | 2016-09-06 12:07 | HHI.HP ---
Provisional Diagnosis Admission Date Sep 06, 2016 at 02:21 [place]elford I. Adjustment disorder with mixed disturbance of emotion and conduct f 43.25, polysubstance abuse including opioid type drugs f 11.20 Certification of Person's Competence To Provide Express and Informed Consent I have personally examined Naresh Su , a person being served at [facility] on, Sep 06, 2016 11:52. Express and informed consent means consent voluntarily given in writing, by a competent person, after sufficient explanation and disclosure of the subject matter involved to enable the person to make a knowing and willful decision without any element of force, fraud, deceit, duress, or other form of constraint or coercion. This person is 18 years of age or older, is not now known to be incompetent to consent to treatment with a guardian advocate, and does not have a health care surrogate or proxy currently making medical treatment decisions. I have found this person to be one of the following: [x] Competent to provide express and informed consent, as defined above, for voluntary admission to this facility and is competent to provide express and informed consent for treatment. He/she has the consistent capacity to make well reasoned, willful, and knowing decisions concerning his or her medical or mental health treatment. The person fully and consistently understands the purpose of the admission for examination/placement and is fully capable of personally exercising all rights assured under [place] [] Incompetent to provide express and informed consent to voluntary admission, and this is incompetent to provide express and informed consent to treatment. The person must be transferred to involuntary status and a petition for a guardian advocate filed with the Circuit Court. [] Refusing to provide express and informed consent to voluntary admission but is competent to provide express and informed consent for treatment. The person must be discharged or transferred to involuntary status. Form shall be completed within 24 hours of a person's arrival at the receiving facility and filed in the clinical record of each person: 1. Admitted on a voluntary basis 2. Permitted to provide express and informed consent to his/her own treatment 3. Allowed to transfer from involuntary to voluntary status 4. Prior to permitting a person to consent to his or her own treatment after having been previously found incompetent to consent to treatment. History of Present Illness Capacity: Has Capacity HPI Patient is a 35-year-old white male well known to us from multiple prior contacts comes here under Su act from [facility] after showing up there leaving his sober house, [facility], giving a history of suicidal ideation with plan to cut his wrists. Patient seen screen and that ED urine toxicology negative blood alcohol level negative. Of interest patient was seen here 08/07/16 with a consultation by Dr. Diaz visit [phone] at that time patient was discharged with no Rx is by us with recommendation to [facility]. As mentioned this is about the patient's fifth visit here this year. At the present time patient sitting quietly in his room nurse Raquel present throughout session. Patient stating that he is becoming more depressed with vague suicidal ideation that he needs his medication adjusted. Patient states that he sees Dr. Castaneda through [facility] act as being prescribed Seroquel Effexor and gabapentin however documentation by Dr. Diaz states the patient is been noncompliant with medication for at least a month or 2 prior to July of this year. Has been noncompliant with follow-up appointments also. Today patient is somewhat vague about compliance with medications stating he has not used any drugs since his visit here in July. He denies any voices or visions at this time, appears to be somewhat subtly substance seeking. Patient states she has no support group in town that he has 4-year-old and 11-year-old children in [facility] where his family of origin is. At the present time I feel patient would benefit from a brief period of observation and assessment. I also feel he has capacity thus I will lift the Su act allow her sign voluntary. We will attempt refrain from any opiates benzodiazepines or substances of abuse. We'll offer him his Seroquel 100 mg at at bedtime and our when necessary Atarax. We need to verify that he does have the ability to return to [facility] perhaps first part of next week Review of Systems Constitutional: DENIES: Diaphoretic episodes, Fatigue, Fever, Weight gain, Weight loss, Chills, Dizziness, Change in appetite, Night Sweats Endocrine: DENIES: Heat/cold intolerance, Polydipsia, Polyuria, Polyphagia Eyes: DENIES: Blurred vision, Diplopia, Eye inflammation, Eye pain, Vision loss , Photosensitivity, Double Vision Ears, nose, mouth, throat: DENIES: Tinnitus, Hearing loss, Vertigo, Nasal discharge, Oral lesions, Throat pain, Hoarseness, Ear Pain, Running Nose, Epistaxis, Sinus Pain, Toothache, Odynophagia Respiratory: DENIES: Apneas, Cough, Snoring, Wheezing, Hemoptysis, Sputum production, Shortness of breath Cardiovascular: DENIES: Chest pain, Palpitations, Syncope, Dyspnea on Exertion , PND, Lower Extremity Edema, Orthopnea, Claudication Gastrointestinal: DENIES: Abdominal pain, Black stools, Bloody stools, Constipation, Diarrhea, Nausea, Vomiting, Difficulty Swallowing, Anorexia Genitourinary: DENIES: Sexual dysfunction, Urinary frequency, Urinary incontinence, Urgency, Hematuria, Dysuria, Nocturia, Penile Discharge, Testicular Pain, Testicular Swelling Musculoskeletal: DENIES: Joint pain, Muscle aches, Stiffness, Joint Swelling, Back pain, Neck pain Integumentary: DENIES: Abnormal pigmentation, Nail changes, Pruritus, Rash Hematologic/lymphatic: DENIES: Bruising, Lymphadenopathy Immunologic/allergic: DENIES: Eczema, Urticaria Neurologic: DENIES: Abnormal gait, Headache, Localized weakness, Paresthesias, Seizures, Speech Problems, Tremor, Poor Balance Psychiatric: COMPLAINS OF: Anxiety (mild), Depression (mild), Suicidal Ideation (vague perhaps somewhat manipulative) Past Psych History Psychological trauma history Denies at this time Violence risk - others (6 mos) Low Violence risk - self (6 mos) Making vague suicidal ideation Substance Abuse History Drugs/Alcohol past 12 months Patient history alcohol and opiate abuse including IV heroin Past Family Social History Coded Allergies: Opiate Agonists (Narcotics) (Verified Allergy, Mild, 07/31/16) PT IS IN RECOVERY Past Medical History Patient history of hepatitis C. please see hospitalist assessment Reported Medications Quetiapine (Seroquel)100 Mg Ask217 Mg PO HS #30 TAB Ref 0 06/28/16 Discontinued Reported Medications Venlafaxine (Effexor)75 Mg Tab75 Mg PO BID #30 TAB Ref 0 06/28/16 Discontinued Scripts Venlafaxine ER 24 HR (Effexor XR 24 HR)75 Mg [id number] Mg PO BID 10 Days Ref 0 Prov:Anthony Montanez MD 07/10/16 Quetiapine 25 Mg Tab25 Mg PO TID 7 Days Ref 0 Prov:Anthony Montanez MD 07/10/16 Quetiapine 200 Mg Wiy226 Mg PO HS 10 Days Ref 0 Prov:Anthony Montanez MD 07/10/16 Gabapentin (Neurontin)400 Mg Plr848 Mg PO TID 7 Days Ref 1 Prov:Anthony Montanez MD 07/10/[address] 250 Mg [id number] Mg PO Q12HR 10 Days Ref 0 Prov:Anthony Montanez MD 07/10/16 Gabapentin (Neurontin)300 Mg [id number] Mg PO TID 10 Days Ref 1 Prov:Anthony Montanez MD 05/03/16 Current Medications Medications (Trade) Dose Ordered Sig/Adalgisa Route Start Time Stop Time Status Last Admin (Atarax) 50 mg Q6H PRN PO 09/06/16 03:00 (Benadryl) 50 mg HS PRN PO 09/06/16 03:00 (Milk Of Magnesia Liq) 30 ml DAILY PRN PO 09/06/16 03:00 (Mag-Al Plus Susp Liq) 30 ml Q6H PRN PO 09/06/16 03:00 (SEROquel) 100 mg HS PO 09/06/16 21:00 UNV Family History Patient denies significant family history states his family of origin there is a mass well Social History Patient lives in safe house has no support group in town Patient's Strengths (min. 2) Patient verbal irritable access healthcare Physical Exam Patient seen screened at [facility] exam reviewed and agreed with vital signs blood pressure 93/53 pulse 85 respirations 18 Vital Signs Vital Signs Date Time Temp Pulse Resp B/P Pulse Ox O2 Delivery O2 Flow Rate FiO2 09/06/16 06:04 98.0 85 18 93/53 98 Mental Status Examination Speech: Unremarkable, Circumstantial Orientation: x3 Memory: Unremarkable Thought Process: Logical, Circumstantial (mildly) Thought Content: Unremarkable Hallucination Type: None Attention and Concentration: Other (fair) Suicidal Ideation: Yes (patient making vague suicidal ideation though there may be a degree of manipulation and perhaps malingering with this) Previous Suicide Attempts: Yes Homicidal Ideation: No Previous Homicide Attempts: No Insight: Poor Judgement: Poor Affect: Other (decreased range and intensity) Mood: Euthymic (to somewhat restricted and dysphoric) Motor Activity: Normal gait Assessment & Plan Problem List: (1) Adjustment disorder with mixed disturbance of emotions and conduct ICD Code: F43.25 (2) Polysubstance dependence including opioid type drug, episodic abuse ICD Code: F11.20 Assessment & Plan Estimated LOS: days patient doesn't meet criteria for brief inpatient psychiatric hospitalization for further assessment and monitoring. I feel he has capacity, will lift Su act. We'll discontinue the trazodone, start patient on cervical 100 mg at at bedtime and continue the when necessary Atarax. We will attempt refrain from any opiates and benzodiazepines of substances of abuse Discharge Planning Hopefully of fairly short stay return patient to [facility] Request HC Surrog/Guard Advoc?: No Ky Ramsey MD Sep 06, 2016 12:07
--- NOTE | 2016-09-06 13:01 | PD.CONS ---
HPI Service [facility] Consult Requested By Psychiatric services Reason for Consult elevated liver enzymes Primary Care Physician No Primary Care Physician Diagnoses: History of Present Illness This is a 35-year-old male patient with past medical history which includes hepatitis C, bipolar and anxiety/depression. Patient was transferred from the hospital to inpatient psychiatric center for suicidal ideations. We have been consulted for assistance with management regarding elevated liver enzymes. Patient does have a history of hepatitis C. Patient reports he was told he had hepatitis C approximately 10 years ago at that time was an IV drug user has since stopped using IV drugs but has not had follow-up or treatment regarding his hepatitis C. Review of prior medical records patient in June 2016 reports he quit drinking 4 years ago. Today patient reports he quit drinking, "a couple months ago." At this time patient appears to be in no acute distress. Patient reports feeling well aside from his thoughts of suicide. Patient denies shortness of breath chest pain nausea vomiting diarrhea constipation and abdominal pain discomfort yellowing of skin or eyes fevers or chills. Patient also reports his appetite is good and his food intake has been about the same. Patient reports he has lost 15-20 pounds over the past 2-3 months. Review of prior records patient was admitted to psychiatric unit June 2016 weight 77.1 kg today weight is recorded at 76.2 kg. Review of Systems Except as stated in HPI: all other systems reviewed are Neg Past Family Social History Allergies: Coded Allergies: Opiate Agonists (Narcotics) (Verified Allergy, Mild, 07/31/16) PT IS IN RECOVERY Past Medical History hepatitis C, bipolar and anxiety/depression Past Surgical History Denies prior surgeries Reported Medications Seroquel (Quetiapine Fumarate) 100 Mg Tab 100 Mg PO HS Active Ordered Medications Current Medications Medications (Trade) Dose Ordered Sig/Adalgisa Route Start Time Stop Time Status Last Admin (Atarax) 50 mg Q6H PRN PO 09/06/16 03:00 (Benadryl) 50 mg HS PRN PO 09/06/16 03:00 (SEROquel) 100 mg HS PO 09/06/16 21:00 (Tylenol) 650 mg Q4H PRN PO 09/06/16 11:45 (Milk Of Magnesia Liq) 30 ml DAILY PRN PO 09/06/16 11:45 (Mag-Al Plus Susp Liq) 30 ml Q6H PRN PO 09/06/16 11:45 (Habitrol 21 Mg Patch.24 Hr) 1 patch DAILY T-DERMAL 09/06/16 12:00 Miscellaneous Information 1 HS TD 09/06/16 21:00 Family History Father had hypertension and, "heart problems" Social History Patient next one pack cigarettes per day for the past 17 years Reports IV drug use at 22 years old reports that since since that time has stopped using IV drugs Reports he quit EtOH use, "a couple months ago." Physical Exam Vital Signs Vital Signs Date Time Temp Pulse Resp B/P Pulse Ox O2 Delivery O2 Flow Rate FiO2 09/06/16 06:04 98.0 85 18 93/53 98 09/06/16 02:10 98.2 80 16 99/58 96 Physical Exam GENERAL: This is a well-nourished, well-developed patient, in no apparent distress. SKIN: No rashes, ecchymoses or lesions. Cool and dry. HEAD: Atraumatic. Normocephalic. No temporal or scalp tenderness. EYES: Extraocular motions intact. No scleral icterus. No injection or drainage. CARDIOVASCULAR: Regular rate and rhythm without murmurs, gallops, or rubs. RESPIRATORY: Clear to auscultation. Breath sounds equal bilaterally. No wheezes , rales, or rhonchi. GASTROINTESTINAL: Abdomen soft, non-tender, nondistended. No guarding. MUSCULOSKELETAL: Extremities without clubbing, cyanosis, or edema. No joint tenderness, effusion, or edema noted. No calf tenderness. Negative Homans sign bilaterally. NEUROLOGICAL: Awake and alert. No focal deficits appreciated. Motor and sensory grossly within normal limits. Five out of 5 muscle strength in all muscle groups. Normal speech. Laboratory Laboratory Tests Test 09/06/16 07:40 Sodium Level 141 Potassium Level 3.8 Chloride Level 105 Carbon Dioxide Level 29.7 Anion Gap 6 Blood Urea Nitrogen 14 Creatinine 0.75 Estimat Glomerular Filtration 119 Rate Random Glucose 88 Calcium Level 8.4 Triglycerides Level 87 Cholesterol Level 177 LDL Cholesterol 111 HDL Cholesterol 48.4 Cholesterol/HDL Ratio 3.65 Result Diagram: 09/06/16 0740 Assessment and Plan Assessment and Plan This is a 35-year-old male patient with past medical history which includes hepatitis C, bipolar and anxiety/depression. Patient was transferred from the hospital to inpatient psychiatric center for suicidal ideations. We have been consulted for assistance with management regarding elevated liver enzymes. Patient does have a history of hepatitis C. Patient reports he was told he had hepatitis C approximately 10 years ago at that time was an IV drug user has since stopped using IV drugs but has not had follow-up or treatment regarding his hepatitis C. Review of prior medical records patient in June 2016 reports he quit drinking 4 years ago. Today patient reports he quit drinking, "a couple months ago." Bipolar, suicidal ideations management per psychiatric team Elevated liver enzymes in patient with history of hepatitis C- question EtOH contributing to elevated liver enzymes Reviewed records [facility] ALT 287, AST 533 Review of prior hospital records ALT 90 AST 268 Repeat CMP in a.m. Ultrasound liver ordered and pending Recommended to patient that he needs outpatient GI/hepatology follow-up for treatment of Hepatitis C- consult placed to case management to assist with arrangements Tobacco abuse patient counseled encouraged to abstain Nicotine patch ordered DVT prophylaxis patient is ambulatory low risk Thank you for the consultation and for allowing us to participate in the care of this patient Discussed with patient, nursing and Dr. Ramsey Written by Anu Miller, acting as scribe for Dr. Hull on 09/06/16 at 13:09. All or portions of this note were transcribed by scribe [Anu Miller, PAC]. I, Dr. Charles Hull personally performed the history, physical exam, and medical decision making; and confirmed the accuracy of the information in the transcribed note. Authenticated by Dr. Charles Hull on 09/06/16 at 15:53. Anu Miller Sep 06, 2016 13:01 Charles Hull MD Sep 06, 2016 15:54
[2016-09-06] MEDS: NICOTINE 21 MG/24 HR PATCH T-DERMAL SCH (13:06)
[2016-09-06] MEDS: hydrOXYzine HCL 50 MG TAB PO PRN ×2 (13:06→20:44)
[2016-09-06 13:52] LABS: HEMOGLOBIN A1a 1.2 %; HEMOGLOBIN A1b 0.8 %; HEMOGLOBIN Ao 85.9 %; HEMOGLOBIN F 0.8 %; HEMOGLOBIN P3 3.5 %
[2016-09-06] MEDS: QUEtiapine FUMARATE 100 MG TAB PO SCH (20:43)
[2016-09-06] MEDS: REMOVE OLD NICODERM (NICOTINE) PATCH TD SCH (20:45)
[2016-09-07 05:49] VITALS: BP 104/55; PULSE 77; RESP 14; TEMP 97.5; O2SAT 98
[2016-09-07 07:45] LABS: ALT (GPT) 670 U/L (12-78); ANION GAP 7 MEQ/L (5-15); AST (GOT) 331 U/L (15-37); BICARBONATE 26.6 MEQ/L (21.0-32.0); BLOOD UREA NITROGEN 17 MG/DL (7-18); CHLORIDE 109 MEQ/L (98-107); GLOMERULAR FILTRATION RATE 114 ML/MIN (>89); POTASSIUM 4.1 MEQ/L (3.5-5.1); SODIUM (NA) 143 MEQ/L (136-145)
[2016-09-07 07:46] LABS: ALKALINE PHOSPHATASE 73 U/L (45-117); TOTAL BILIRUBIN ADULT 0.7 MG/DL (0.2-1.0)
[2016-09-07] MEDS: NICOTINE 21 MG/24 HR PATCH T-DERMAL SCH (09:00)
--- NOTE | 2016-09-07 11:07 | RADRPT ---
EXAM DATE/TIME: 09/07/2016 09:48 [facility] COMPARISON: No previous studies available for comparison. INDICATIONS : Abnormal labs. MEDICAL HISTORY : Hepatitis C. Elevated liver enzymes. ETOH abuse. Opiate addiction. SURGICAL HISTORY : None. ENCOUNTER: Initial ACUITY: 1 day PAIN SCORE: 0/10 LOCATION: Bilateral upper quadrant MEASUREMENTS: LIVER: 16.1 cm length COMMON DUCT: 4 mm RIGHT KIDNEY: 11.9 x 6.2 x 5.0 cm SPLEEN: 12.9 cm length FINDINGS: LIVER: Normal echotexture without focal lesion or ductal dilatation. COMMON DUCT: No intraluminal mass or stone visualized. GALLBLADDER: Contains no stones, demonstrates no wall thickening or pericholecystic fluid. PANCREAS: The visualized portions are within normal limits. RIGHT KIDNEY: No hydronephrosis, stone or mass. SPLEEN: No focal lesion. CONCLUSION: Normal examination. Given history of abnormal laboratory values and hepatitis C recommended continu ed annual screening. Margarita Hinkle MD on September 07, 2016 at 11:03 Board Certified Radiologist. This report was verified electronically.
--- NOTE | 2016-09-07 16:28 | HHI.PYPN ---
Subjective Remarks Patient was seen and case discussed with nursing. Patient is concerned he is not getting his Effexor and gabapentin. Does not want to go into withdrawal from Effexor. Says he was getting Effexor 75 mg daily and gabapentin 600 mg by mouth 3 times a day. Describes his mood today is "okay." Denies suicidal ideation intent or plan. His behaving well on the unit. Minimizes his admission. Patient is elevated liver enzymes secondary to hep C Objective Alert: Yes [place]: Person, Place, Date, Situation Mood: Depressed Affect: Blunted Memory Intact: Comment (not tested) Hallucinations: Auditory (denies) Delusions: No Delusion Type: Other (denies) Suicidal: Ideation (denies) Homicidal: Ideation (denies) Insight/Judgement Poor Labs Test 09/07/16 06:35 Sodium Level 143 MEQ/L Potassium Level 4.1 MEQ/L Chloride Level 109 MEQ/L Carbon Dioxide Level 26.6 MEQ/L Anion Gap 7 MEQ/L Blood Urea Nitrogen 17 MG/DL Creatinine 0.78 MG/DL Estimat Glomerular Filtration 114 ML/MIN Rate Random Glucose 92 MG/DL Calcium Level 8.6 MG/DL Total Bilirubin 0.7 MG/DL Aspartate Amino Transf 331 U/L (AST/SGOT) Alanine Aminotransferase 670 U/L (ALT/SGPT) Alkaline Phosphatase 73 U/L Total Protein 6.9 GM/DL Albumin 3.4 GM/DL Vitals/IOs Vital Signs Date Time Temp Pulse Resp B/P Pulse Ox O2 Delivery O2 Flow Rate FiO2 09/07/16 05:49 97.5 77 14 104/55 98 Assessment & Plan Problem List: (1) Adjustment disorder with mixed disturbance of emotions and conduct ICD Code: F43.25 (2) Polysubstance dependence including opioid type drug, episodic abuse ICD Code: F11.20 Assessment & Plan Medical team is treating patient for his hepatitis C. Patient gives oral informed consent for Effexor and gabapentin. Risks and benefits were discussed. Patient is on low-dose Effexor given his possible hepatic impairment Justification for Cont. Inpt. Patient will decompensate in a less restrictive setting Request HC Surrog/Guard Advoc?: No Huy Bellamy DO Sep 07, 2016 16:28
[2016-09-07] MEDS: VENLAFAXINE HCL XR 75 MG CAP PO SCH (16:30)
[2016-09-07] MEDS: GABAPENTIN 400 MG CAP PO SCH (17:44)
[2016-09-07 17:45] VITALS: BP 133/69; PULSE 86; RESP 16; TEMP 97.8; O2SAT 98
[2016-09-07] MEDS: REMOVE OLD NICODERM (NICOTINE) PATCH TD SCH (21:00)
[2016-09-07] MEDS: QUEtiapine FUMARATE 100 MG TAB PO SCH (21:25)
[2016-09-08 06:24] VITALS: BP 98/54; PULSE 67; RESP 16; TEMP 97.9; O2SAT 98
[2016-09-08] MEDS: NICOTINE 21 MG/24 HR PATCH T-DERMAL SCH (08:43)
[2016-09-08] MEDS: GABAPENTIN 400 MG CAP PO SCH ×3 (08:45→18:08)
[2016-09-08] MEDS: VENLAFAXINE HCL XR 75 MG CAP PO SCH (08:46)
[2016-09-08] MEDS: hydrOXYzine HCL 50 MG TAB PO PRN ×2 (11:23→20:51)
--- NOTE | 2016-09-08 13:47 | HHI.PYPN ---
Subjective Remarks Patient was seen and case discussed with nursing. Ultrasound was done and was within normal limits per report. We will repeat his CMP today to monitor liver enzymes. Continues to be followed by the medical team. He is tolerating his Effexor and gabapentin well without any GI complaints. Patient remains depressed and blunted. Laying in bed. Denies suicidal ideation intent or plan. Less irritable today Objective Alert: Yes [place]: Person, Place, Date, Situation Mood: Depressed Affect: Flat Memory Intact: Comment (not tested) Hallucinations: Auditory (denies) Delusions: No Delusion Type: Other (denies) Suicidal: Ideation (denies) Homicidal: Ideation (denies) Insight/Judgement Poor Vitals/IOs Vital Signs Date Time Temp Pulse Resp B/P Pulse Ox O2 Delivery O2 Flow Rate FiO2 09/08/16 06:24 97.9 67 16 98/54 98 Assessment & Plan Problem List: (1) Adjustment disorder with mixed disturbance of emotions and conduct ICD Code: F43.25 (2) Polysubstance dependence including opioid type drug, episodic abuse ICD Code: F11.20 Assessment & Plan Continue current treatment plan Justification for Cont. Inpt. Patient will decompensate in a less restrictive setting Request HC Surrog/Guard Advoc?: No Huy Bellamy DO Sep 08, 2016 13:47
[2016-09-08 16:22] LABS: ALT (GPT) 724 U/L (12-78); ANION GAP 6 MEQ/L (5-15); AST (GOT) 309 U/L (15-37); BICARBONATE 27.9 MEQ/L (21.0-32.0); BLOOD UREA NITROGEN 13 MG/DL (7-18); CHLORIDE 107 MEQ/L (98-107); GLOMERULAR FILTRATION RATE 97 ML/MIN (>89); POTASSIUM 3.9 MEQ/L (3.5-5.1); SODIUM (NA) 141 MEQ/L (136-145)
[2016-09-08 16:23] LABS: ALKALINE PHOSPHATASE 83 U/L (45-117); TOTAL BILIRUBIN ADULT 0.6 MG/DL (0.2-1.0)
[2016-09-08 17:32] VITALS: BP 125/65; PULSE 94; RESP 16; TEMP 98.5; O2SAT 98
[2016-09-08] MEDS: REMOVE OLD NICODERM (NICOTINE) PATCH TD SCH (20:51)
[2016-09-08] MEDS: QUEtiapine FUMARATE 100 MG TAB PO SCH (20:51)
[2016-09-09 05:28] VITALS: BP 100/55; PULSE 72; RESP 16; TEMP 98.1; O2SAT 98
[2016-09-09 07:52] LABS: TOTAL BILIRUBIN ADULT 0.4 MG/DL (0.2-1.0)
[2016-09-09 07:55] LABS: INDIRECT BILIRUBIN 0.3 MG/DL (0.0-0.8)
[2016-09-09] MEDS: GABAPENTIN 400 MG CAP PO SCH (08:48)
[2016-09-09] MEDS: NICOTINE 21 MG/24 HR PATCH T-DERMAL SCH (08:48)
[2016-09-09] MEDS: VENLAFAXINE HCL XR 75 MG CAP PO SCH (08:48)
[2016-09-09] MEDS ORDERED: VENL75XR PO (09:02)
[2016-09-09] MEDS ORDERED: QUET1TAB8 PO (09:02)
[2016-09-09] MEDS ORDERED: NEUR400C PO (09:02)
--- NOTE | 2016-09-09 09:06 | HHI.DS ---
Psychiatry Discharge Summary Inpatient Psychiatric care?: Yes Advance Directive: No Reason Not Provided: none Mental Health AdvanceDirective: No Health Care Proxy: No Admission Admission Date Sep 06, 2016 at 02:21 Admission Diagnosis: (1) Polysubstance dependence including opioid type drug, episodic abuse ICD Code: F11.20 (2) Adjustment disorder with mixed disturbance of emotions and conduct ICD Code: F43.25 Brief History Patient is a 35-year-old white male well known to us from multiple prior contacts comes here under [employer] act from [facility] after showing up there leaving his sober house, [facility], giving a history of suicidal ideation with plan to cut his wrists. Patient seen screen and that ED urine toxicology negative blood alcohol level negative. Of interest patient was seen here 08/07/16 with a consultation by Dr. Diaz visit [phone] at that time patient was discharged with no Rx is by us with recommendation to [facility] Hinojosa. As mentioned this is about the patient's fifth visit here this year. At the present time patient sitting quietly in his room nurse Raquel present throughout session. Patient stating that he is becoming more depressed with vague suicidal ideation that he needs his medication adjusted. Patient states that he sees Dr. Castaneda through [email or web address] act as being prescribed Seroquel Effexor and gabapentin however documentation by Dr. Diaz states the patient is been noncompliant with medication for at least a month or 2 prior to July of this year. Has been noncompliant with follow-up appointments also. Today patient is somewhat vague about compliance with medications stating he has not used any drugs since his visit here in July. He denies any voices or visions at this time, appears to be somewhat subtly substance seeking. Patient states she has no support group in town that he has 4-year-old and 11-year-old children in [facility] where his family of origin is. At the present time I feel patient would benefit from a brief period of observation and assessment. I also feel he has capacity thus I will lift the Su act allow her sign voluntary. We will attempt refrain from any opiates benzodiazepines or substances of abuse. We'll offer him his Seroquel 100 mg at at bedtime and our when necessary Atarax. We need to verify that he does have the ability to return to [facility] perhaps first part of next week Tobacco Use In Past 30 Days: 5 or More Cigarettes/Day Alcohol Use: Never Hospital Course Patient did well over the weekend, compliant with medications, not denies suicidality homicidality voices or visions. She showing some reluctance to being discharged September this may be more manipulation on his particular true reaction to mental health issues. Patient to be discharged today with a two- week supply of medication. To follow through act Results Blood Pressure 100 / 55 Vital Signs Date Time Temp Pulse Resp B/P Pulse Ox O2 Delivery O2 Flow Rate FiO2 09/09/16 05:28 98.1 72 16 100/55 98 Laboratory Tests Test 09/07/16 09/08/16 09/09/16 06:35 15:02 06:52 Chloride Level 109 MEQ/L (98-107) Aspartate Amino Transf 331 U/L (15-37) 309 U/L (15-37) 271 U/L (15-37) (AST/SGOT) Alanine Aminotransferase 670 U/L (12-78) 724 U/L (12-78) 652 U/L (12-78) (ALT/SGPT) Laboratory Results Test 09/06/16 07:40 Hemoglobin A1c 5.2 % (4.3-6.0) Triglycerides Level 87 MG/DL (42-150) Cholesterol Level 177 MG/DL (120-200) LDL Cholesterol 111 MG/DL (0-99) HDL Cholesterol 48.4 MG/DL (40.0-60.0) Summary of Procedures None done Imaging Last Impressions Liver Ultrasound 09/07/16 0000 Signed Impressions: Service Date/Time: Wednesday, September 07, 2016 09:48 - CONCLUSION: Normal examination. Given history of abnormal laboratory values and hepatitis C recommended continued annual screening. Margarita Hinkle MD Pending results at discharge: No Medications # of Antipsychotic meds at D/C: 1 Approp Antipsych med options 1 - Minimum of three failed multiple trials of monotherapy. 2 - Documented plan to taper to monotherapy due to previous use of multiple meds OR cross-taper in progress at D/C. 3 - Documentation of augmentation of Clozapine. 4 - Justification other than those listed in allowable values 1-3, document here : Discharge Discharge Date: Sep 09, 2016 Discharge Diagnosis: (1) Polysubstance dependence including opioid type drug, episodic abuse Diagnosis: Secondary ICD Code: F11.20 (2) Adjustment disorder with mixed disturbance of emotions and conduct Diagnosis: Principal ICD Code: F43.25 Mental Status Exam at Disch Cleared oriented thin slender white male somewhat disheveled appearance, is normal active, mood is euthymic with slight decrease range intensity was affect , speech rate and rhythm within normal limits though no formal thought disorders , auditory or visual hallucinations, no delusions, insight and judgment poor, cognition grossly intact Pt Condition on Discharge: Stable Discharge Disposition: Discharge Home Discharge Instructions Diet Instructions: As Tolerated, No Restrictions Activities you can perform: Regular-No Restrictions Scheduled Appointment: Mehul Laws Discharge Time > 30 minutes Discharge/Advance Care Plan Health Problems: (1) Adjustment disorder with mixed disturbance of emotions and conduct (2) Polysubstance dependence including opioid type drug, episodic abuse Goals to promote your health * To prevent worsening of your condition and complications * To maintain your health at the optimal level Directions to meet your goals Take your medications as prescribed Follow your dietary instruction Follow activity as directed Keep your appointments as scheduled Take your immunizations and boosters as scheduled If your symptoms worsen call your PCP, if no PCP go to Urgent Care Center or Emergency Room For 06/01 questions related to your inpatient stay or results of tests pending at discharge, please contact Dr. Ky Ramsey at Smoking is Dangerous to Your Health. Avoid second hand smoking Ky Ramsey MD Sep 09, 2016 09:06
== END 2016-09-09 12:40 | disposition home or self-care (01) | DRG 882 ==
LOC: H260 02:21 → UNDOADMIN 02:26
PROVIDERS: ADMIT Psychiatry & Neurology Psychiatry; ATTEND Psychiatry & Neurology Psychiatry
DX: F43.25 Adjustment disorder with mixed disturbance of emotions and conduct (principal); R45.851 Suicidal ideations; F11.20 Opioid dependence, uncomplicated; F10.10 Alcohol abuse, uncomplicated; B19.20 Unspecified viral hepatitis C without hepatic coma; F17.210 Nicotine dependence, cigarettes, uncomplicated; Z91.14 Patient's other noncompliance with medication regimen; Z91.19 Patient's noncompliance with other medical treatment and regimen
CPT/HCPCS: 76705; 80048; 80053; 80061; 80076; 83036